=== PATIENT | male | born 1940 | race Caucasian/White ===

== ENCOUNTER 2020-06-15 17:15 | Emergency (ER) | payer OTHER ==
[~2020-06-15] VITALS: Ht 167.6 cm; Wt 81.7 kg
[~2020-06-15 17:15] MED LIST: ADULT LOW DOSE81 MG PO; DEPAKOTE ER250 MG PO; DILTIAZEM ER180 M2 PO; LANTUS SUBQ; LEVO-T100 MCG PO; LIPITOR 40 MG T40 M1 PO; NAMENDA 10 MG T10 MG PO; NAMENDA 5 MG TAB5 M1 PO; PLAVIX 75 MG TA75 MG PO; PRINIVIL10 MG PO; ZYPREXA2.5 MG PO
[2020-06-16 01:37] LABS: HEMATOCRIT 36.6 % (42.0-52.0); HEMOGLOBIN 12.2 gm/dL (14.0-18.0); MCH 32.5 pg (26.0-34.0); MCHC 33.4 g/dL (28.0-37.0); MCV 97.1 fL (80.0-100.0); RBC 3.76 mil/uL (4.50-6.00); RDW 13.2 % (10.5-14.5); WBC 7.1 thou/uL (4.0-11.0)
[2020-06-16 01:45] LABS: POTASSIUM 4.6 mmol/L (3.5-5.1)
[2020-06-16 04:02] VITALS: BP 148/74
== END 2020-06-16 03:55 ==
LOC: ER 17:15
PROVIDERS: Internal Medicine
DX: G30.8 Other Alzheimer's disease (principal); F02.81 Dementia in other diseases classified elsewhere, unspecified severity, with behavioral disturbance; I10 Essential (primary) hypertension; E11.9 Type 2 diabetes mellitus without complications; Z79.82 Long term (current) use of aspirin; Z79.01 Long term (current) use of anticoagulants; Z79.899 Other long term (current) drug therapy; Z20.822 Contact with and (suspected) exposure to COVID-19

== ENCOUNTER 2020-06-16 04:03 | Inpatient (IN) | payer OTHER ==
[~2020-06-16] VITALS: Ht 172.7 cm; Wt 77.5 kg
[2020-06-16 04:46] VITALS: BP 137/98
--- NOTE | 2020-06-16 05:28 | NUR ---
0500 NEW ADMIT FROM [facility] PATIENT HERE FOR ALTER MENTAL STATUS. PATIENT WAS COMBATIVE AND IS IMPULSIVE PATIENT HAS A HISTORY OF RIGHT FRONTAL CVA. PATIENT IS A DIABETIC, HTN, HLD PATIENT UPON ARRIVING ON UNIT CALM COOPERATIVE. PATIENTS ABDOMEN SOFT BOWEL SOUNDS PRESENT LUNGS CLEAR PATIENT DENIES SI/HI/AH/VH AT PRESENT. PATIENT ALERT ORIENTED TO SELF AND PLACE PATIENT IS A HIGH FALL RISK AND WILL NEED WC. PATIENT PLEASANT WILL CONTINUE TO MONITOR PATIENT FOR SAFETY AND BEHAVIORS.
[2020-06-16 09:19] VITALS: BP 150/75
[2020-06-16 11:00] VITALS: BP 150/75
--- NOTE | 2020-06-16 11:29 | NUR ---
ASSUMED CARE AT 0700 THIS MORNING. PT. REFUSED TO GET UP FOR BREAKFAST. HE WAS ALLOWED TO SLEEP IN. HE WAS COOPERATIVE WITH ASSESSMENT. PT. HRR, ABDOMINAL BOWEL SOUNDS HYPOACTIVE. PT. UNABLE TO TELL THIS RN WHEN HIS LAST BOWEL MOVEMENT WAS. HE KEPT REPEATING, "I DON'T THINK I'M NOT GOING TO MAKE IT". WHEN ASKED WHY, HE STATED, "I'VE BEEN ALL OVER THE PLACE IN DIFFERENT HOSPITALS AND I'M NOT GETTING ANY BETTER". PT. WAS INCONTINENT. HE WAS CHANGED, AND GOTTEN UP BEFORE LUNCH. HE WAS GIVEN A GLASS OF WATER. HE DID TAKE HIS MORNING MEDICATIONS THIS MORNING WITHOUT PROBLEMS NOTED.
--- NOTE | 2020-06-16 14:37 | NUR ---
Assessment and treatment plan completed
[2020-06-16 19:39] VITALS: BP 121/69
[2020-06-16 21:45] VITALS: BP 121/69
--- NOTE | 2020-06-17 02:49 | NUR ---
Assumed pt care at 1900. Pt's alert to self and place,confused. VSS.C/o pain to right knee medicated with Tylenol and effective. Pt's up with Ax1/WC, very unsteady on feet. Pt was assisted to bed at HS but woke up a few hours later;became impulsive and kept trying to get out of the bed. Pt assisted back on the chair but still wouldn't stay still;very restless. Steeple Jack Kurt notified and gave orders for Trazadone 50mg x1,and may repeat after an hour. Pt medicated w/o problems and no need for second dose of Trazadone,resting eyes closed on reassessment on the chair in day room. Fall precautions in place,will continue to monitor pt.
[2020-06-17 10:11] VITALS: BP 132/64
[2020-06-17 11:40] LABS: CALCIUM 8.8 mg/dL (8.5-10.1); CREATININE 2.2 mg/dL (0.7-1.3); POTASSIUM 5.2 mmol/L (3.5-5.1)
--- NOTE | 2020-06-17 13:23 | NUR ---
CELESTINA and Dr. Stuart spoke with pt's daughter Sarah. She said that she has been noticing pt's memory failing. He also has been confused about the seasons and loses track of his days. She said that she has been taking him to his appointments and has been managing his finances. Dr. Stuart and CELESTINA explained that pt may need a higher level of care; a AQUILES assessment has been ordered to assess his home skills. Sarah says she has been looking in to the [facility]'s senior living in [place]. She also has been looking at other ME locations with a shorter wait list. She said pt was initially on the wait list but then the ME changed rules and so now she is waiting for him to be put back on. She said she was advised by [facility] that he may qualify for a skilled stay. CELESTINA explained that option and also explained respite as she is waiting for placement. Dr. Stuart said he will order a PT/OT consultation to assess if pt meets skillable criteria in the hospital. Sarah said she will submit via email a copy of pt's DPOA docs. CELESTINA sent an email to her the handbook and welcome letter to . CELESTINA team will continue to follow pt during his stay on this unit.
--- NOTE | 2020-06-17 13:32 | NUR ---
Assumed pt care at 0700.pt was oriented to self.pt was sleeping but arousable pt woke up to take his medication. pt took his medication crushed in yogurt. pt ambulates with a Rona chair. pt was mostly sleepy, but there was no sign of si/hi noted. there were no c/o or sign of pain noted.at this time 1341 pt is awake, drinking water. will continue to monitor pt.
[2020-06-17 19:47] VITALS: BP 116/44
--- NOTE | 2020-06-18 03:13 | NUR ---
DURING SHIFT REPORT TECHNICIAN'S HELPER REPORTED PT HAD PULLED IV OUT, THIS ADVERTISING ASSOCIATE AND AM RN RESPONDED, NO BLEEDING AT SITE. AM RN SECURED IV PUMP EQUIPMENT AND NOTED APPROXIMATELY 500ML INFUSED. PT SITTING IN GERICHAIR IN DAY ROOM. 06-17-20 CARE TRANSFERRED 1900. LATER PT RECEIVED REPORT FROM TECHNICIAN'S HELPER AND MANUAL B/P TAKEN 128/58, P 84, R 18 EVEN AND NONLABORED ON RA. PT DENIES SI/HI AND PAIN AND JOKES AROUND. DURING MEDICATION ADMIN HAD NO DIFFICULTIES. LATER ASSISTED PT TO BEDSIDE COMMODE AND PT HAD SMALL AMOUNT OF YELLOW URINE. PT BED WAS ADJUSTED FOR COMFORT, ZERO S/S OF ACUTE DISTRESS NOTED, PT WILL CONTINUE TO BE MONITOR PER [facility] PROTOCOL.
[2020-06-18 05:33] LABS: ALBUMIN 3.1 g/dL (3.4-5.0); PHOSPHORUS 3.7 mg/dL (2.5-4.9); POTASSIUM 4.8 mmol/L (3.5-5.1)
[2020-06-18 10:01] VITALS: BP 152/71
--- NOTE | 2020-06-18 12:45 | NUR ---
CELESTINA contacted Sarah via cell as she has not received a copy of pt's dpoa docs. CELESTINA was unable to leave a message as the mailbox was full. SW team will continue to follow pt during her stay on this unit.
--- NOTE | 2020-06-18 17:06 | NUR ---
0700 ASSUMED CARE OF PATIENT. PATIENT SITS IN GERICHAIR AWAKE AND CALM. PATIENT DENIED NEEDS. PATIENT ABLE TO FEED SELF WITH MIN ASSISTANCE. MEDICATION TAKEN WHOLE WITHOUT DIFFICULTY. PATIENT PRESENT IN GROUP. NO C/O PAIN, LS CLEAR, BS ACTIVE. BRUISES TO ARMS BILATERALLY NOTED. DRIED BLOOD TO OLDER SKIN TEAR TO LEFT ARM NOTED. WILL CONTINUE TO OBSERVE
[2020-06-18 19:59] VITALS: BP 102/55
--- NOTE | 2020-06-19 03:07 | NUR ---
06-18-20 CARE TRANSFERRED 1899. OBSERVED PT SUPINE IN BED WITH EYES OPEN, AAOX2, VSS, RR EVEN AND NONLABORED ON RA, PT DENIES SI/HI AND PAIN. RESPONDED TO BED ALARM AND NOTED PT UP AD KANG AND STANDBY ASSIST TO TOLIET, YELLOW VOID, NO SEDIMENT OR NO FOUL ODOR NOTED. PT REPORTED WANTING TO GO TO DAY ROOM AND SIT WITH OTHERS, NOTED PT SOCIALIZING WITH OTHERS AND THIS CORROSION TECHNICIAN. LATER ASKED PT IF HE WANTED TO GO BACK TO BED AND PT DENIED. ZERO S/S OF ACUTE DISTRESS NOTED, PT WILL CONTINUE TO BE MONITOR PER [facility] PROTOCOL.
[2020-06-19 10:11] VITALS: BP 151/70
--- NOTE | 2020-06-19 11:50 | NUR ---
[facility] director told SW that she was able to access pt's DPOA docs from [facility]. SW team will continue to follow pt during his stay on this unit.
--- NOTE | 2020-06-19 11:58 | NUR ---
SW reviewed pt's chart and saw that PT is recommending a skilled stay for pt. Pt's behaviors are still too unstable to withstand a skilled stay at this time. SW team will continue to follow pt during his stay on this unit.
--- NOTE | 2020-06-19 14:57 | NUR ---
0700 ASSUMED CARE OF PATIENT. PATIENT TO DAYROOM IN [facility], PATIENT SITS AT TABLE AND ATTEMTS TO FEED SELF. ASSISTED BY RN. PATIENT REFUSED MEDS THIS AM BED CONTROL SPECIALIST ATTEMPT TO GIVE 3X'S. HOSPITALIST AWARE OF REFUSAL OF MEDS THIS AM. PATIENT NOTED A BIT RESTLESS. PATIENT WORKS WITH OT, AFTER OT PATIENT SLEEPS IN [facility]. 12 PM PATIENT TAKES PO MEDICATION FROM AM. PATIENT PRESENT IN GROUPS TODAY. LS CLEAR, BS ACTIVE. WILL CONTINUE TO OBSERVE
--- NOTE | 2020-06-19 20:18 | NUR ---
1725 OLANZAPINE 5MG IM GIVN FOR SEVERE AGIGTATION. IM GIVEN BY LICENSED NUCLEAR CONTROL ROOM OPERATOR TO LEFT DELTOID. PATIENT SITTING IN TAYLOR CHAIR WITH LAP VITO FASTENED TO FRONT. PATIENT SLEEPING IN TAYLOR CHAIR AFTER INJECTION.
[2020-06-19 20:43] VITALS: BP 152/90
--- NOTE | 2020-06-20 05:19 | NUR ---
06-19-20 CARE TRANSFERRED 1900 OBSERVED PT SITTING IN GERICHAIR IN HALLWAY BY NURSING STATION, RESTING WITH EYES CLOSED. LATER PT PRESENTS LETHGARIC, CALM AND COOPERATIVE, AAOX1, VSS, RR EVEN AND NONLABORED ON RA. LATER PT HAD NO DIFFICULTIES WITH MEDICATION, AND BED WAS ADJUSTED FOR COMFORT. ZERO S/S OF ACUTE DISTRESS NOTED, PT WILL CONTINUE TO BE MONITOR PER [facility] PROTOCOL.
[2020-06-20 05:54] LABS: ALBUMIN 3.1 g/dL (3.4-5.0); CALCIUM 9.3 mg/dL (8.5-10.1); CREATININE 1.8 mg/dL (0.7-1.3); PHOSPHORUS 3.5 mg/dL (2.5-4.9); POTASSIUM 5.6 mmol/L (3.5-5.1)
[2020-06-20 08:06] VITALS: BP 134/76
--- NOTE | 2020-06-20 14:55 | NUR ---
0700 ASSUMED CARE OF PATIENT, PATIENT IN GERICHAIR ASLEEP AT THAT TIME. PATIENT SLEPT THROUGH BREAKFAST, MEDICATIONS NOT GIVEN PATIENT WAKES WHEN NAME CALLED BUT FALLS BACK ASLEEP. PATIENT REPOSITIONED IN CHAIR. PATIENT AWAKE PRIOR TO LUNCH, SITTING AT TABLE FOR LUNCH. AM MEDICATIONS GIVEN AT 1145. PATIENT ASSISTED TO TOILET X 1 ASSIST BM NOTED. NO C/O PAIN, LS CLEAR, BS ACTIVE. PATIENT OUT IN DAYROOM AWAKE SITTING AT TABLE AT THIS TIME. PATIENT PRESENT IN GROUP.
[2020-06-20 19:58] VITALS: BP 107/77
[2020-06-20 23:09] VITALS: BP 107/77
--- NOTE | 2020-06-20 23:17 | NUR ---
ASSUMED CARE ON 06/20/20 @ 1900, SEATED IN TAYLOR CHAIR, CALM AND COOPERATIVE WITH ASSESSMENT AND COMPLIANT WITH MEDICTIONS, TYLENOL 650 PROVIDED FOR 6/10 KNEE PAIN. ALLOWED HIMSELF TO BE TRANSFERRED TO BED @ , INCONTINENT CARE PROVIDED. YELLOW URINE OUTPUT NOTED. BED IN LOW POSITION, BED ALARM SET, WILL CONTINUE TO MONITOR PER UNIT PROTOCOL.
[2020-06-21 06:08] LABS: CALCIUM 8.5 mg/dL (8.5-10.1); CREATININE 1.2 mg/dL (0.7-1.3); PHOSPHORUS 4.3 mg/dL (2.5-4.9); POTASSIUM 5.3 mmol/L (3.5-5.1)
--- NOTE | 2020-06-21 08:28 | NUR ---
PT SITTING IN DINING ROOM AT THIS TIME. PT FRIEND BOBO MODI, CALLED THIS AM AND STATED HE HAD THE CODE, TOLD FRIEND THAT NURSES WAS IN REPORT AND WILL CALL BACK. TRIED TO CALL FRIEND AND LEFT A MESSAGE THAT HE COULD CALL BACK. PT WANTING TO SEE DTR TODAY. PT LUNGS CLEAR. PT HAS SCABS TO FACE AND LEFT SIDE OF FACE HAS A GROWTH THAT IS NOT CANCER PER PT.
[2020-06-21 08:30] VITALS: BP 116/67
[2020-06-21 10:05] VITALS: BP 116/67
--- NOTE | 2020-06-21 12:15 | NUR ---
ASSISTED PT TO ROOM TO CHANGE BRIEF AND PANTS. PT WAS INCONT. OF URINE. PT WAS ABLE TO TRANSFER SELF TO BED FOR CHANGE. PT ABLE TO WIPE UP SELF ON LEGS AND BUTTOCKS.
--- NOTE | 2020-06-21 12:40 | NUR ---
ADM KAYEXALATE 30MG X1 PO FOR ELEVATED K LEVEL. PT TOOK MEDICATION WITHOUT ANY ISSUES. PT WORKING WITH THERAPY AT THIS TIME.
--- NOTE | 2020-06-21 13:35 | NUR ---
CELESTINA and Dr. Stuart spoke with pt's daughter Sarah and gave an update on pt; Dr. Stuart reaffirmed his believe that pt needs placement. Sarah said that pt has gone skilled in the past and gotten better. Because of that, she would like him to go skilled first before making the decision to place pt. CELESTINA sent in an email to Sarah a [place] listing and asked her to respond by 06/24 with 3-5 options for referrals. SW team will continue to follow pt during his stay on this unit.
--- NOTE | 2020-06-21 14:42 | NUR ---
RT Progress Note- Adán remains present in the milieu and recreation therapy groups each day. His participation is dependent upon his variable level of focus. At times Adán is restless and redirectable with conversation about hunting, baseball, or basketball. COMPUTING SERVICES DIRECTOR will continue to encourage his participation with a goal of increased attention and concentration, frustration tolerance, and decreased restlessness.
--- NOTE | 2020-06-21 18:18 | NUR ---
PT TRYING TO LOOK FOR BROTHER AND MOTHER, PT NOT FOLLOWING DIRECTIONS. PT STATED I DON'T GIVE A DAMN.
--- NOTE | 2020-06-21 19:06 | NUR ---
PT NOT FOLLOWING DIRECTIONS. PT WANTING TO GET UP AND GET OUT OF HERE. PT STATED HE DIDN'T GIVE A DAMN AND WAS GOING TO SHOT SOMEONE AND HE HAD GUNS. ADM ZYPREXIA 5MG IM FOR AGGITATION.
[2020-06-21 20:17] VITALS: BP 120/89
--- NOTE | 2020-06-22 05:18 | NUR ---
Assumed care for patient at 1900. Pt sitting in derrick-chair in dining room. Pt has been dozing off and on, siting in that position. Pt has been calm and cooperative. Pt takes medications whole. Pt has been sleeping most of night in gerichair in day room. Pt assisted to restroom as needed and changed when incontient. Pt is on q 12 minute checks for safety. Will continue to monitor and document any changes in mood/behavior. Pt has been calm, cooperative and
[2020-06-22 09:16] VITALS: BP 150/79
--- NOTE | 2020-06-22 16:25 | NUR ---
Alert and orientated to name only. Conversie at times with confused speech. Denies SI/HI. Able to independently brush teeth when handed toothbrush. Spent majority of day in gerichair with lap higinio fastened in front. Able to stand and take a few steps with assistance. Breath sounds clear. Reg HR auscultated. Color pink with brisk capillary refill and palpable peripheral pulses. Continent of yellow urine. Active bowel sounds over soft, rounded abdomen. Currently sitting in chair without s/o distress.
[2020-06-22 20:00] VITALS: BP 126/72
[2020-06-22 22:15] VITALS: BP 126/72
--- NOTE | 2020-06-23 03:52 | NUR ---
ASSESSMENT: PT REMAIN ALERT AND ORIENT TIMES 1-2. SPEAKS WITH CONFUSED SPEECH. COMPLIANT WITH TAKING MEDICATIONS. IN THE TAYLOR WITH LAP VITO AT THE BEGINNING OF THE SHIFT. INCONT TIMES ONE OF BLADDER. WEARS BRIEFS. NO BM. DENIES SI/HI. DENIES PAIN. CALM/COOPERATIVE THE ENTIRE SHIFT. TOLERATING PO INTAKE. NONE COMBATIVE AT THIS TIME. SLOW PROGRESS TOWARDS DC GOALS, WILL CONTINUE TO MONITOR.
[2020-06-23 11:20] VITALS: BP 134/67
--- NOTE | 2020-06-23 13:21 | NUR ---
PLEASANT AND COOPERATIVE SO FAR THIS SHIFT. ENJOYS VISITING 1;1 WITH STAFF-CONVERSATION OFTEN [id number] AT LENGTH ABOUT A DEMOCRAT HE WENT TO LAST PM WITH "A COUPLE OF GIRLS" STATING "THEY DROPPED ME OFF HERE AND IM NOT SURE WHEN THEY ARE GOING TO PICK ME UP-THEY HAD BEEN DRINKING A LOT" DENIES C/O PAIN/DISCOMFORT DURING ASSESSMENT. WAS ASSISTED TO TOILET Q 2-3 HOURS THROUGHOUT SHIFT-INCONTINENT OF URINE X2 BUT DID HAVE BM ON COMMODE-TRANSFERS WITH SBA X 1-2. APPETTTE GOOD AND IS ABLE TO FEED SELF-TAKES PO FLUIDS WELL.ORIENTED TO NAME ONLY.
[2020-06-23 19:16] VITALS: BP 116/58
--- NOTE | 2020-06-24 05:49 | NUR ---
06-24-20 CARE TRANSFERRED 1900 OBSERVED PT SITTING IN RECLINER IN DAY ROOM. LATER PT AAOX1, VSS, RR EVEN AND NONLABORED ON RA, PT DENIES PAIN AND SI/HI. PT HAS BEEN CALM AND COOPERATIVE AND PLESANT, BUT CONFUSED. ZERO S/S OF ACUTE DISTRESS NOTED, PT WILL CONTINUE TO BE MONITOR PER [facility] PROTOCOL.
[2020-06-24 05:50] LABS: ALBUMIN 3.1 g/dL (3.4-5.0); CREATININE 1.4 mg/dL (0.7-1.3); PHOSPHORUS 2.1 mg/dL (2.5-4.9); POTASSIUM 3.5 mmol/L (3.5-5.1)
--- NOTE | 2020-06-24 10:21 | NUR ---
ASSUMED CARE AT 0700. PT. SITTING IN RECLINING CHAIR IN DINDING ROOM. HE IS A BIT AGITATED AND FUSSING AT THE STAFF. STAFF INFORMED THIS RN OF SITUATION. HIS 0900 MEDICATIONS WERE GIVEN AT THAT TIME. HE WAS PLACED WITH A LAP VITO DUE TO HIS UNSTEADY GAIT. HE GREW INCREASINGLY AGITATED AND WAS HITTING STAFF REPEATEDLY. HE WAS GIVEN OLANZAPINE 5 MG IM.
[2020-06-24 11:45] VITALS: BP 126/63
[2020-06-24 12:16] VITALS: BP 126/63
--- NOTE | 2020-06-24 14:57 | NUR ---
CELESTINA spoke with Sarah and provided to her an update on pt. Sarah said she received CELESTINA's listing and wants to get input from her father, but she heard he was having a bad day when she called him. CELESTINA explained that his behaviors are not the best today, but that she should make the decision because when he gets better he will likely not meet criteria to be on this unit any longer. She said she will review the list and respond to CELESTINA's email with options this evening. CELESTINA team will continue to follow pt during his stay on this unit.
[2020-06-24 19:35] VITALS: BP 120/52
[2020-06-25 05:50] VITALS: BP 104/51
--- NOTE | 2020-06-25 06:35 | NUR ---
PT BEEN SLEEPING MOST OF THE NOC IN THE [facility].PT IS EASILY AROUSABLE BUT FALL BACK TO SLEEP IMMEADITELY.TRIED TO WAKE HIM UP SEVERAL TIMES TO TAKE HIS MEDS,HE WILL OPEN HIS EYES,TRY TO FIGHT RN AND EVEN CURSES AND FALL RIGHT BACK TO SLEEP.RN UNABLE TO GIVE MEDS D/T RISK OF ASPIRATION.PT STILL SLEEPING HARD THIS AM AND UNABLE TO GIVE AM MEDS.PT IS RESPONSIVE AND EVEN TRY TO FIGHT BACK WITH EYES CLOSED WHILE WE TRY TO WAKE HIM.NO S/SX OF DISTRESS NOTED.
[2020-06-25 07:00] VITALS: BP 152/56
--- NOTE | 2020-06-25 14:06 | NUR ---
PATIENT WAS IN GERICHAIR SLEEPING IN DAYROOM WHEN CARE ASSUMED. PATIENT WOKE UP FOR BREAKFAST, HAD A FEW BITES OF EGGS, MORNING MEDICATION GIVEN CRUSHED IN PUDDING, WELL TOLERATED, AND HE WENT BACK TO SLEEP. PATIENT WOKE UP FOR LUNCH, HAD JELLO, AND DRANK I GLUCERNA, CHOOSE NOT TO EAT THE MAIN MEAL. INCONTINENT CARE PROVIDED BY STAFF. PATIENT IS ALERT, AND ORIENTED X 1-2. CURRENTLY SITTING IN GERICHAIR FEEDING SELF ICECREAM. NO AGITATION OR AGGRESSIVE BEHAVIOR NOTED AT THIS TIME. PATIENT DENIES SUICIDAL/HOMICIDAL IDEATION. HE DENIES DEPRESSION, NOT ABLE TO APPROPRIATELY RESPOND TO FURTHER ASSESSMENT QUESTIONS DUE TO COGNITIVE IMPAIRMENT. AFFECT FLAT/BLUNTED, MOOD IS IS CALM. NO SIGN OF ACUTE DISTRESS NOTED AT THIS TIME, WILL MONITOR FOR SAFETY.
[2020-06-25 19:54] VITALS: BP 108/68
--- NOTE | 2020-06-26 03:53 | NUR ---
PT BEEN RESTING IN NO ACUTE DISTRESS.A/OX1-2.FOLLOWS COMMANDS APPROPRIATELY AND CO-OPERATIVE W/CARE.TOOK HIS MEDS W/O DIFFICULTIES.PT SPEND MOST OF THE NIGHT IN THE BED.STAFF ASSSIST W/ADLS AND TRANSFERS.HAS GREAT APPETITE.POC IS TO CONT W/CURRENT MANAGING WHILE LOOKING FOR PLACEMENT FOR CONTINUED CARE.
[2020-06-26 10:03] VITALS: BP 130/55
--- NOTE | 2020-06-26 12:40 | NUR ---
CELESTINA provided an update to Sarah. Sarah said her first two choices of placement for skilled are [facility], and [facility]. CELESTINA said she will send referrals for pt tomorrow to these places and a few others. CELESTINA team will continue to follow pt during his stay on this unit.
--- NOTE | 2020-06-26 15:10 | NUR ---
PATIENT HAS BEEN UP, AND OUT ON THE UNIT, HE IS FORGETFUL, CONFUSED AT TIMES. PATIENT TOOK MORNING MEDICATION WHOLE WITHOUT DIFFICULTY. PATIENT IS EATING MEALS, AND DRINKING FLUID WELL. PATIENT DENIES SUICIDAL/HOMICIDAL IDEATION. NOT ABLE TO APPROPRIATELY RESPOND TO ASSESSMENT QUESTIONS DUE TO COGNITIVE IMPAIRMENT. INCONTINENT CARE PROVIDED PER STAFF, PATIENT REALLY SHOWING IMPROVEMENT WITH THERAPY. HE IS ABLE TO FED SELF, APPETITE GOOD. NO S&S HYPER/HYPOGLYCEMIA NOTED, INSULIN GIVEN PER SLIDING SCALE ORDER. PATIENT DENIES HAVING PHYSICAL PAIN. EKG COMPLETED PER ORDER, AWAITING RESULT. NO SIGN OF ACUTE DISTRESS NOTED, WILL MONITOR FOR SAFETY.
[2020-06-26 19:41] VITALS: BP 136/60
--- NOTE | 2020-06-27 03:04 | NUR ---
Assumed care of patient at 1900. Pt awake in activity room sitting in gerichair at start of this shift. Pt has been calm and cooperative this shift. Pt is A & O x 1-2. Pt is 2 person assist with transfers. Pt is a high fall risk and fall risk protocols are implemented. Pt is incontient. Pt last BM was 3.15.21. Pt BS has been running high and low through out the day. PT BS at HS was 254. Pt received his 10 Units of lantus insulin and 17 units of Humolog per sliding scale. Pt has been compliant with meds and takes meds whole with water. Pt has been resting most of night in activity room in the gerichair. Pt is on a carb controlled diet. Pt has been pleasant Pt is on 12 minute checks for safety. Will continue to monitor for any changes in mood and/or behaviors.
[2020-06-27 05:46] LABS: HEMATOCRIT 34.2 % (42.0-52.0); HEMOGLOBIN 11.2 gm/dL (14.0-18.0); MCH 32.2 pg (26.0-34.0); MCHC 32.9 g/dL (28.0-37.0); MCV 97.7 fL (80.0-100.0); RBC 3.49 mil/uL (4.50-6.00); RDW 13.6 % (10.5-14.5); WBC 14.4 thou/uL (4.0-11.0)
[2020-06-27 05:51] LABS: CALCIUM 9.4 mg/dL (8.5-10.1); CREATININE 1.5 mg/dL (0.7-1.3); MAGNESIUM 2.3 mg/dL (1.8-2.4); POTASSIUM 3.9 mmol/L (3.5-5.1)
--- NOTE | 2020-06-27 07:16 | EKG ---
[address] [address] ELECTROCARDIOGRAM REPORT Name: MONSE CAZARES Room #: [facility] ADM IN M.R.#: [id number] Admission: 06/16/20 Attend Phys: Phan Stuart DO Discharge: Date of : 40 Report #: [id number] [facility] Test Date: 2020-06-26 Test Time: 15:16:38 Pat Name: MONSE CAZARES Department: Room: [facility] B Gender: M Diagnostic Radiologic Technologist: MAKEDA : 1940 Requested By: Phan Stuart Order Number: [id number] MD: Kurt Painter Measurements Intervals Arnold Rate: 82 P: 102 NY: 220 QRS: -28 QRSD: 113 T: 1 QT: 373 QTc: 436 Interpretive Statements Sinus rhythm Ventricular premature complex Prolonged [place] interval Borderline intraventricular conduction delay Borderline T abnormalities, inferior leads No previous ECG available for comparison Electronically Signed On 06-27-2020 7:16:20 CDT by Kurt Painter [email or web address] <ELECTRONICALLY SIGNED> By: Kurt Painter MD, [facility] 06/27/20 0716 15 15 Kurt Painter MD, FACC /EPI
[2020-06-27 09:22] VITALS: BP 136/35
[2020-06-27 09:42] VITALS: BP 136/68
--- NOTE | 2020-06-27 10:31 | NUR ---
1015 RESUMMED CARE FROM OVERNIGHT SHIFT THIS AM, PATIENT IN DAY ROOM ASLEEP IN DAY ROOM. I DID GET PATIENT TO WAKE UP AND HE ATE SOME OF HIS BREAKFAST AMD TOOK MEDICATION CRUSHED. PATIENT ORIENTED TO SELF ONLY UNABLE TO TELL ME ABOUT SI/HI/AH/VH AT PRESENT. PATIENT HAS ALTER MENTAL STATUS PATIENTS ABDOMEN SOFT BOWEL SOUNDS PRESENT. PATIENTS LUNGS CLEAR PATIENT CALM COOPERATIVE SOMEWHAT SLEEPY OFF AND ON. WILL CONTINUE TO MONITOR PATIENT FOR SAFETY AND BEHAVIORS.
[2020-06-27 19:48] VITALS: BP 128/57
[2020-06-28 05:15] LABS: HEMATOCRIT 32.3 % (42.0-52.0); HEMOGLOBIN 10.7 gm/dL (14.0-18.0); MCH 32.4 pg (26.0-34.0); MCHC 33.1 g/dL (28.0-37.0); MCV 97.7 fL (80.0-100.0); RBC 3.31 mil/uL (4.50-6.00); RDW 13.6 % (10.5-14.5); WBC 10.5 thou/uL (4.0-11.0)
[2020-06-28 05:39] LABS: CALCIUM 9.3 mg/dL (8.5-10.1); CREATININE 1.1 mg/dL (0.7-1.3); MAGNESIUM 2.1 mg/dL (1.8-2.4)
[2020-06-28 07:37] LABS: URINE BILIRUBIN NEGATIVE (Negative); URINE BLOOD NEGATIVE (Negative); URINE CLARITY CLEAR; URINE COLOR YELLOW; URINE GLUCOSE-RANDOM* NEGATIVE (Negative); URINE KETONES 1+ (Negative); URINE LEUKOCYTES-REFLEX NEGATIVE (Negative); URINE NITRITE-REFLEX NEGATIVE (Negative); URINE PROTEIN (DIPSTICK) TRACE (Negative); URINE UROBILINOGEN 0.2 E.U./dl (0.2-1.0)
[2020-06-28 09:35] VITALS: BP 130/66
[2020-06-28 11:16] VITALS: BP 130/66
--- NOTE | 2020-06-28 13:39 | NUR ---
1330 RESUMMED CARE FROM OVERNIGHT SHIFT THIS AM, PATIENT ALERT ORIENTED TO SELF ONLY. PATIENT YESTERDAY WAS VERY SLEEPLY AND WHEN DOING HIS ASSESSMENT HE STATED THAT HE HAD NOT SLEPT WELL DURING OVERNIGHT SHIFT. I GOT A UA SAMPLE FROM PATIENT HIS ABDOMEN SOFT BOWEL SOUNDS PRESENT. PATIENTS LUNGS CLEAR PATIENT DENIES SI/HI/AH/VH AT PRESENT. PATIENT MORE INTERACTIVE THIS SHIFT PLEASANT COOPERATIVE. WILL CONTINUE TO MONITOR PATIENT FOR SAFETY AND BEHAVIORS.
--- NOTE | 2020-06-28 14:11 | NUR ---
RT Progress Note- Adán's participation in recreation therapy groups has been fairly minimal d/t pt's sleeping patterns. When awake, Adán is able to follow tasks with assistance and moderately engage. He has not displayed any aggression or agitation in groups. INSOLE AND OUTSOLE PREPARER will continue to encourage participation.
--- NOTE | 2020-06-28 15:39 | NUR ---
Updates for skilled placement for pt are as follows: [facility] - denied. Unsure of why. Awaiting a call from admissions. [facility] - denied. Does not accept VA insurance. [facility] - denied. Unable to meet needs. [facility] - Denied. Unable to meet behavioral needs. [facility] - Denied. Does not accept VA insurance. [facility] sent today to the following[facility] team will continue to follow pt during his stay on this unit.
[2020-06-28 20:39] VITALS: BP 108/71
--- NOTE | 2020-06-29 07:03 | NUR ---
PT AWAKE MOST OF SHIFT, PRN ZYPEXA GIVEN FOR AGITATION., PT REMAIN AWAKE THIS AM.
[2020-06-29 08:25] VITALS: BP 136/68
--- NOTE | 2020-06-29 18:00 | NUR ---
0700 ASSUMED CARE OF PATIENT, PATIENT IN DAYROOM AWAKE AT THAT TIME. PATIENT ALERT AND CALM SITTING IN GERICHAIR. FEW BITES OF BREAKFAST TAKEN. MEDICATION TAKEN WHOLE WITHOUT DIFFICULTY. PATIENT SLEEPS IN CHAIR DURING THE DAY. PATIENT HAD 0 HRS OF SLEEP AT NIGHT. 1628 BLOOD SUGAR OBATAINED WITH 32 RESULT. CHICK GRADER GAVE 2 APLLE JUICES, PEANUT BUTTER AND CELIA CRAKER GIVEN. BLOOD SUGAR RECHECKED AND REMAINED UNDER 50. 1700 22G STARTED TO LEFT HAND. SITE SECURED WITH TAPE AND TRANSPARENT DRESSING. D10W STARTED AT 1705 WIDE OPEN. PATIENT TOLERATED WELL. HOSPITALIST NOTIFIED. FLUIDS COMPLETED AND HEPLOCKED BLOOD SUGAR RETAKEN WITH RESULTS OF 218 AT 1715. PATIENT ATE DINNER WITH ASSISTANCE. PATIENT ALERT AND CALM AT THIS TIME.
[2020-06-29 19:52] VITALS: BP 116/47
[2020-06-29 22:05] VITALS: BP 116/47
--- NOTE | 2020-06-30 01:52 | NUR ---
Assumed care on 06/28/20, seated in derrick chair eyes closed, respirations even and unlabored. HRRR, Lung sounds bilat, ABD n x4q over a round abdomen. AC/HS 274, Glargine 10U provided, S/S held d/t extrememly low bs in the afternoon. Takes meds crushed with out difficulty, accepted thin water. Trazadone 50 provided @ . Transferred to bed @ , sleeping well at this writing, eyes closed, respirations even and unlabored. Bed in low position, bed alarm set, will continue to monitor as per unit protocol for safety and comfort.
[2020-06-30 09:48] VITALS: BP 135/69
--- NOTE | 2020-06-30 16:29 | NUR ---
SW faxed updates to nursing facility.
--- NOTE | 2020-06-30 17:51 | NUR ---
0700 ASSUMED CARE OF PATIENT, PATIENT SITTING IN GERICHAIR SMILING AND TALKING. PATIENT ASSISTED WITH BREAKFAST. PATIENT TALKATIVE THIS AM. PATIENT SLEEPS OFF AND ON IN CHAIR. MEDICATIONS TAKEN WHOLE WITHOUT DIFFICULTY. PATIENT TO BSC IN ROOM SCANT AMOUT OF BM NOTED. NO C/O PAIN. SL TO LEFT HAND PATENT, FLUSHED WITH NS AND SECURED WITH WRAP PATIENT STARTING TO TUG AT IT. PATIENT RELAXED IN CHAIR AT THIS TIME.
[2020-06-30 19:00] VITALS: BP 132/59
--- NOTE | 2020-07-01 03:51 | NUR ---
ASSUMED CARE FROM DAY SHIFT PT UP IN CHAIR,PT TIM TO TAKE HS PILLS WITHOUT DIFFICULTY, INSULIN GIVEN ORDER , HS SNACK EATEN. PT THEN TAKEN TO ROOM , UP TO BSC, PT VERY CONSTIPATED, HAD TO DIGITAL DISIMPACT PATIENT, ROOL GOLF BALL SIZE STOOL NOTED. PT STATED HE FELT BETTER, THEN PT WAS ABLE TO FALL ASLEEP. FREQ ROUNDING FOR SAFETY WITH BED ALARM IN PLACE WITH ABHAYUE WITH CURRENT PLAN OF CARE.
[2020-07-01 10:25] VITALS: BP 120/65
--- NOTE | 2020-07-01 12:11 | NUR ---
CELESTINA received a call from Kelly with [facility] stating they may accept pt. She asked for permission to speak to Sarah, and CELESTINA granted such permission. CELESTINA received a call from Myla Diallo with [facility] stating that [facility] wants to accept pt; possibly today. She said that she is going to check pt's insurance and then call SW back. She mentioned that they have a few options to accomodate pt including a [facility]. SW team will continue to follow pt during his stay on this unit.
[2020-07-01] MEDS ORDERED: DIVALPROEX SOD250 M1 PO (13:45)
[2020-07-01] MEDS ORDERED: TRAZODONE HCL50 MG PO (13:46)
[2020-07-01] MEDS ORDERED: OLANZAPINE2.5 MG PO (13:54)
--- NOTE | 2020-07-01 15:31 | NUR ---
CELE[facility]INA D/C NOTE Myla called CELESTINA and told her she arranged for a 1530 d/c to [facility]. CELESTINA faxed a copy of pt's discharge docs including a copy of pt's [id number] to Myla. CELESTINA will submit discharge docs to pt's hospital file. No other needs for SW team to address at this time.
--- NOTE | 2020-07-01 16:29 | NUR ---
At 1605 pt was D/C TO [facility]. pt left with his belongings, D/C instructions, D/C SUMMARY, AND PRESCRIPTION SCRIPT. TRANSIT WORKER ACCOMPANIED PT TO Main entrance Exit with [facility] staff. pt was transported via w/c to the departure vehicle. report was call to [facility]IL[facility]RE[facility] at 1620.
--- NOTE | 2020-07-02 22:40 | D ---
[facility] [place] [id number] DISCHARGE SUMMARY Name: MONSE CAZARES Room #: 521B-B [facility] IN M.R.#: [id number] Admission: 06/16/20 Attend Phys: Phan Stuart DO Discharge: 07/01/20 Date of : 40 Report #: [id number] THIS REPORT FOR: cc: Peter Mcwilliams MD, Paul MD Kerstein,Phan Alfaro DO ~ DATE OF SERVICE: 07/01/2020 INPATIENT PSYCHIATRIC DISCHARGE SUMMARY ATTENDING PSYCHIATRIST: Phan Stuart DO COLLEGE SCOUTING COORDINATOR: Evaristo Murphy MD DISCHARGE DIAGNOSES: Major neurocognitive disorder due to multiple etiologies with behavioral disturbance, improved. MEDICAL HISTORY: History of acute right frontal embolic CVA, on aspirin and Plavix; diabetes mellitus type 2, on insulin; hypertension; acute on chronic kidney injury, monitoring; hypothyroidism, on Synthroid. DISCHARGE PLAN: The patient is discharging to [facility] for shelter stay. Psychiatric and medical care per receiving facility. DIET: Diabetic, 2000-calorie diet. There is a dietary supplement Glucerna shake twice daily with breakfast and dinner recommended. The patient is not that ambulatory, requires min assist and a walker. He is a full care with bathing, showering, and dressing at this point. DISCHARGE MEDICATIONS: As follows: Diltiazem 180 mg ER for hypertension, Lantus 10 units subcutaneous at bedtime, levothyroxine 100 mcg oral daily, lisinopril 10 mg oral daily, aspirin 81 mg oral daily, Plavix 75 mg oral daily, Namenda 10 mg oral twice daily, Depakote 750 mg oral at bedtime. Recommend Depakote level at 1800 in 1 week. Trazodone 50 mg oral at bedtime for sleep, olanzapine 2.5 mg oral twice daily for mood stabilization versus major neurocognitive disorder. LABORATORY DATA: Pertinent laboratory this admission, most recent labs on 06/28/2020 with H and H 10.7 and 32.3, white count 10.5, platelet count 290. Chemistries this admission on 06/28/2020 include sodium 140, potassium 4.0, chloride 103, bicarbonate 27, anion gap 10, BUN 34, creatinine 1.1, estimated GFR 65, otherwise grossly normal. Urinalysis, trace protein, 1+ ketones. Toxicology: Depakote level on 06/20/2020 was 49, slightly increased the day before discharge, to get the level up a bit. COVID-19 PCR was negative. REASON FOR ADMISSION: Back up earlier in June is as follows: A 79-year-old [address] [address] DISCHARGE SUMMARY Name: MONSE CAZARES Room #: 521B-B [facility] IN M.R.#: [id number] Admission: 06/16/20 Attend Phys: Phan Stuart DO Discharge: 07/01/20 Date of : 40 Report #: [id number] male, transferred from [facility]. He reportedly had a stroke alert on admission there. Endorsed feeling helpless, hopeless. Living alone in the [place] area. He was [employer] . HOSPITAL COURSE: The patient was admitted to Geriatric Psychiatry Unit. Had a bit of waxing and waning course of improving, then becoming somnolent, some intermittent agitation. I used Depakote, initially olanzapine added for better impulse control. There was some challenge in getting him to a SNF facility, so additional hospital days were required for placement, added on to the length of the admission. At the day of discharge, the patient was in fair mood, pleasantly confused, not agitated or suicidal or homicidal. Physical and occupational therapist did feel he could make some gains and likely will need a long-term care placement after the skilled stay, his daughter, Sarah, I believe, was advised of this. PHYSICAL EXAMINATION: VITAL SIGNS: On the day of discharge, temperature 36.7, pulse 80, respirations 16, BP 120/65, O2 sat 95%. MUSCULOSKELETAL: Nonambulatory in Rona chair. MENTAL STATUS EXAMINATION: This is a well-developed, ill-appearing male, appearing older than stated age. Attention limited. Concentration limited. Speech slightly slowed. Thought process linear and limited. Thought content, no specific subject. Denied SI or HI. Denied auditory, visual, or tactile hallucinations. Memory known to be impaired, not formally tested. Insight limited. Judgment limited. Fund of knowledge below average at this point. PROGNOSIS: For this patient is guarded given his major neurocognitive disorder, recent medical events, need for 24-hour care. <ELECTRONICALLY SIGNED> By: Phan Stuart DO 07/02/202239 00 23 Phan Stuart DO /nt
== END 2020-07-01 16:05 | DRG 884 ==
LOC: SBH 04:03
PROVIDERS: Hospitalist; Internal Medicine; ADMIT Psychiatry & Neurology Psychiatry; ATTEND Psychiatry & Neurology Psychiatry
DX: F01.51 Vascular dementia, unspecified severity, with behavioral disturbance (principal); N17.9 Acute kidney failure, unspecified; E11.22 Type 2 diabetes mellitus with diabetic chronic kidney disease; I12.9 Hypertensive chronic kidney disease with stage 1 through stage 4 chronic kidney disease, or unspecified chronic kidney disease; E03.9 Hypothyroidism, unspecified; E78.5 Hyperlipidemia, unspecified; E86.0 Dehydration; E11.649 Type 2 diabetes mellitus with hypoglycemia without coma; Z66 Do not resuscitate; Z86.73 Personal history of transient ischemic attack (TIA), and cerebral infarction without residual deficits; Z87.891 Personal history of nicotine dependence; Z79.899 Other long term (current) drug therapy
CPT/HCPCS: 10880